=== PATIENT | female | born 1975 | race Caucasian/White ===

== ENCOUNTER 2018-06-12 10:35 | Outpatient (CLI) | payer OTHER, SELFPAY ==
[2018-06-12 12:29] LABS: Anion Gap 11 mmol/L (10-20); BUN (Urea Nitrogen) 8 mg/dL (7.0-18.7); Calc. Creatinine Clearance 0 mL/min (70-130); Calcium 9.8 mg/dL (7.8-10.44); Carbon Dioxide 29 mmol/L (22-29); Chloride 103 mmol/L (98-107); Estimated GFR-MDRD 86; Glucose 97 mg/dL (70-105); Potassium 3.9 mmol/L (3.5-5.1); Sodium 139 mmol/L (136-145)
== END 2018-06-12 10:36 | disposition home or self-care (01) ==
LOC: LABBT 10:35
PROVIDERS: ATTEND Surgery
DX: Z01.812 Encounter for preprocedural laboratory examination (principal); C50.911 Malignant neoplasm of unspecified site of right female breast
CPT/HCPCS: 80048

== ENCOUNTER 2018-06-17 07:06 | Inpatient (IN) | payer OTHER ==
[2018-06-12 11:08] VITALS: BMI 17.6
--- NOTE | 2018-06-17 09:43 | NM ---
RIGHT BREAST LYMPHOSCINTIGRAPHY: 06/17/2018 HISTORY: Malignant neoplasm, unspecified site, involving the right breast. RADIOPHARMACEUTICAL: Technetium 99m filtered sulfur colloid 400 millicuries subcutaneously. FINDINGS: Technetium 99m filtered sulfur colloid 400 millicuries was injected subcutaneously, in a right periar eolar location, in four separate aliquots. Immediate imaging in anterior and lateral positioning dem onstrates a focal area of uptake seen within the right axilla, likely corresponding to a sentinel lym ph node. This area was marked, and the patient was transported to the operating room. IMPRESSION: Focal area of increased uptake of radiotracer within the right axillary region, likely corresponding to a sentinel lymph node. POS: DONIS
[2018-06-17] MEDS ORDERED: CEFAZOLIN 2 GM/50 ML BAG ONE (11:20)
[2018-06-17] MEDS ORDERED: Midazolam HCl 2 mg/2 ml Vial ONE (14:14)
[2018-06-17] MEDS ORDERED: Famotidine/PF 20 mg/2ml Vial ONE (14:14)
[2018-06-17] MEDS ORDERED: Scopolamine 1.5 mg/72 hour Patch ONE (14:15)
[2018-06-17] MEDS ORDERED: Ondansetron PF 4 MG/2 ML Vial ONE (14:15)
[2018-06-17] MEDS ORDERED: Bupivacaine/Epinephrine 0.25% 30 ML VIAL ONE (15:10)
[2018-06-17] MEDS ORDERED: Fentanyl 100 MCG/2 ML VIAL ONE ×2 (16:10→19:53)
[2018-06-17] MEDS ORDERED: Ondansetron HCl/PF 4 MG/2 ML Vial IVP PRN (17:50)
[2018-06-17] MEDS ORDERED: Promethazine HCl 25 MG/ML VIAL SLOW IVP PRN (17:50)
[2018-06-17] MEDS ORDERED: Promethazine HCl 25 MG/ML VIAL IM PRN ×2 (17:50→21:04)
[2018-06-17] MEDS ORDERED: HYDROmorphone 2 MG/ML VIAL SLOW IVP PRN (17:50)
[2018-06-17] MEDS ORDERED: Meperidine HCl/PF 25 MG/ML VIAL SLOW IVP PRN (17:50)
[2018-06-17] MEDS ORDERED: Meperidine HCl/PF 25 MG/ML VIAL ONE (18:25)
[2018-06-17] MEDS ORDERED: hydrALAZINE 20 MG/ML VIAL SLOW IVP PRN (21:04)
[2018-06-17] MEDS ORDERED: Ondansetron PF 4 MG/2 ML Vial IVP PRN (21:04)
[2018-06-17] MEDS ORDERED: HYDROcodone/Acetaminophen 7.5/325 mg Tablet PO PRN (21:04)
[2018-06-17] MEDS ORDERED: Morphine 4 MG/ML VIAL SLOW IVP PRN ×2 (21:04)
[2018-06-17] MEDS ORDERED: Dextrose 50% Abboject 50 ML SYRINGE SLOW IVP PRN (21:04)
[2018-06-17] MEDS ORDERED: Dextrose 5% in Water 1,000 ML IV PRN (21:04)
[2018-06-17] MEDS ORDERED: Famotidine 20 MG TAB PO SCH (21:15)
[2018-06-17] MEDS: D5 1/2 NS w/20 mEq KCL 1,000 ML IV SCH (21:22)
[2018-06-18] MEDS: HYDROcodone/Acetaminophen 7.5/325 mg Tablet PO PRN ×2 (08:14→12:20)
[2018-06-18] MEDS ORDERED: Famotidine 20 MG TAB PO SCH (09:00)
[2018-06-18 11:30] VITALS: BP 98/62; TEMP 98
[2018-06-18] MEDS: D5 1/2 NS w/20 mEq KCL 1,000 ML IV SCH (11:51)
--- NOTE | 2018-06-18 12:10 | OP ---
DATE OF PROCEDURE: 06/17/2018 PREOPERATIVE DIAGNOSIS: Right breast cancer. POSTOPERATIVE DIAGNOSIS: Right breast cancer. PROCEDURES: 1. Right simple mastectomy. 2. Left simple mastectomy. 3. Right deep axillary node biopsy (sentinel node protocol). ANESTHESIA: General. ESTIMATED BLOOD LOSS: 50 mL. COMPLICATIONS: None. FINDINGS: Lymphoscintigraphy revealed uptake in right axilla and right sentinel node was found. SPECIMEN: Right and left breasts each marked with two short superior and one long lateral, right deep axillary node. INDICATIONS FOR PROCEDURE: The patient is a 43-year-old female, who presents with multifocal breast cancer disease in the right breast. She elects to undergo bilateral mastectomy. Her BRCA testing is negative. TECHNIQUE: The patient was taken to the operating room and laid supine on the operating room table. After general anesthetic was obtained, 5 mL of methylene blue dye was infiltrated under the right nipple and massaged for 10 minutes. The patient had already undergone lymphoscintigraphy. Bilateral chest, neck, arms, and axilla were prepped and draped in a sterile fashion. Elliptical incision was made in the left chest to ellipse out the nipple-areolar complex. The incision was extended laterally. Flaps were raised superior to the clavicle, medially to the sternum, laterally to the latissimus dorsi muscle, inferior to the inframammary fold. The breast tissue was taken off with the pectoralis fascia off the muscle. It was marked with two short superior and one long lateral, sent to Pathology for final diagnosis. Meticulous hemostasis was obtained. A 19 round drain was brought out through a separate stab incision and sewn using a 2-0 silk. The wound was closed using 3-0 Vicryl, 4-0 Monocryl, and Dermabond. Next, a same incision was made in the right chest. Again, flaps were raised superior to the clavicle, medially to sternum, inferior to inframammary fold, laterally to latissimus dorsi muscle, and the breast tissue was taken off from the medial to lateral approach. This breast was marked with two short superior and one long lateral and sent to Pathology for final diagnosis. Uptake with the Neoprobe was in the right axilla. Counts of 300 to 400 were obtained in the area. This lymph node was blue. It was removed. Background counts dropped to 0. Hemostasis was obtained. A 19 round drain was brought out through a separate stab incision and sewn in place using silk. The breast was closed using 3-0 Vicryl, 4-0 Monocryl, and Dermabond. Antimicrobial disc and Tegaderms were placed at the drain exit site. The patient was sent to Recovery in stable condition. All instrument counts, needle counts, and lap counts were correct. Job ID: [id number]
--- NOTE | 2018-06-18 13:52 | DIS ---
DATE OF ADMISSION: 06/17/2018 DATE OF DISCHARGE: 06/18/2018 ADMITTING DIAGNOSIS: Right breast cancer. DISCHARGE DIAGNOSES: Right breast cancer. PROCEDURES: Bilateral mastectomy by Dr. Elizondo without complication. CONDITION ON DISCHARGE: Improved. STAFF: Dr. Elizondo. HOSPITAL COURSE: On postop day #1, the patient is doing well. Her pain is controlled. Drain output is not significant. Drain education has been given. She is to be discharged home today. She is going to follow up in my office next week for path results as well as drain removal. Job ID: [id number]
== END 2018-06-18 14:05 | disposition home or self-care (01) | DRG 581 ==
LOC: SDC 07:06 → UNDOADMIN 18:00 → SJJU 18:00
PROVIDERS: ADMIT Surgery; ATTEND Surgery
PROC: 07B50ZX Excision of Right Axillary Lymphatic, Open Approach, Diagnostic (ICD-10-PCS; principal; 2018-06-17)
PROC: 0HTV0ZZ Resection of Bilateral Breast, Open Approach (ICD-10-PCS; 2018-06-17)
PROC: C71LYZZ Planar Nuclear Medicine Imaging of Upper Chest Lymphatics using Other Radionuclide (ICD-10-PCS; 2018-06-17)
DX: C50.911 Malignant neoplasm of unspecified site of right female breast (principal); D64.9 Anemia, unspecified
CPT/HCPCS: 78195; A9541; J0131; J2175; J2250; J2405; J3010; Q9968; S0028